=== PATIENT | female | born 1980 ===

== ENCOUNTER 2016-11-03 10:33 | Emergency (ER) | payer MEDICAID, OTHER ==
--- NOTE | 2016-11-03 11:49 | C.PDOC ---
History Of Present Illness 36 yr old female presents to the ER stating yesterday while walking she twisted her right foot. Patient states she was able to walk on it but the pain and swelling has progressively worsened. Patient denies leg pain, back pain, fall, weakness or numbness. Time Seen by Provider: 11/03/16 11:14 Chief Complaint (Nursing): Lower Extremity Problem/Injury History Per: Patient History/Exam Limitations: no limitations Onset/Duration Of Symptoms: Days (1) Current Symptoms Are (Timing): Still Present Pain Scale Rating Of: 4 Recent travel outside of the [place]: No - Knee Description Of Injury: Twisted Alleviating Factor(s): Elevation Past Medical History Reviewed: Historical Data, Nursing Documentation, Vital Signs Vital Signs: Last Vital Signs Temp 97.8 F 11/03/16 10:41 Pulse 76 11/03/16 10:41 Resp 16 11/03/16 10:41 BP 125/83 11/03/16 10:41 Pulse Ox 100 11/03/16 11:58 Surgical History: Cholecystectomy Family History: States: No Known Family Hx - Social History Hx Alcohol Use: No Hx Substance Use: No - Immunization History Hx Influenza Vaccination: No Review Of Systems Except As Marked, All Systems Reviewed And Found Negative. Musculoskeletal: Positive for: Foot Pain (Right foot). Negative for: Back Pain , Leg Pain Neurological: Negative for: Weakness, Numbness Physical Exam - Physical Exam Appears: Non-toxic, No Acute Distress Skin: Warm, Dry, No Rash Head: Atraumatic, Normacephalic Eye(s): bilateral: Normal Inspection Oral Mucosa: Moist Chest: Symmetrical Extremity: Tenderness (Right Foot - Lateral right foot ), No Calf Tenderness, Capillary Refill (< 2 sec), No Deformity, Swelling (Right Foot - Lateral right foot ), Other (Full ROM of toe. Full ROM of right knee. ) Extremity: Bilateral: Normal Color And Temperature Pulses: Left Dorsalis Pedis: Normal, Right Dorsalis Pedis: Normal Neurological/Psych: Oriented x3, Normal Speech, Normal Motor, Normal Sensation Gait: Steady ED Course And Treatment O2 Sat by Pulse Oximetry: 100 (on RA) Pulse Ox Interpretation: Normal - Other Rad X-Ray - Right Foot X-Ray: Interpreted by Me, Viewed By Me Interpretation: (+) comminuted fracture to the distal 5th metatarsal X-Ray - Right Knee X-Ray: Interpreted by Me, Viewed By Me Interpretation: Negative. Orthopedic Time Performed: 12:00 Time Out: Side verified, Site verified Procedure: Splint Type: Short, Posterior Consent obtained: Verbal Performed by: Mid-level Provider (Diana Carranza) Diagnosis: Fracture Type: Closed, Comminuted Location: Right Bone: Metatarsal Capillary refill: Normal Distal Sensation: Normal Distal Motor Function: Normal Compartment: Normal Distal Sensation: Normal Distal Motor Function: Normal Patient tolerated procedure: Well Medical Decision Making Medical Decision Making: PLAN: * X-Ray - Right Foot, Right Ankle * Tylenol PO Patient was instructed in crutch walking. Disposition - Disposition Referrals: Anya Quintero MD [Staff Provider] - [facility] [Outside] Disposition: HOME/ ROUTINE Disposition Time: 12:12 Condition: GOOD Additional Instructions: Follow up with the Orthopedist or Brake Rider within 1 week. 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 - Scribe Statement The provider has reviewed the documentation as recorded by the Scribe Bre Capone All medical record entries made by the Scribe were at my direction and personally dictated by me. I have reviewed the chart and agree that the record accurately reflects my personal performance of the history, physical exam, medical decision making, and the department course for this patient. I have also personally directed, reviewed, and agree with the discharge instructions and disposition.
[2016-11-03 12:30] VITALS: BP 110/77; PULSE 73; RESP 18; TEMP 97.9; O2SAT 98
--- NOTE | 2016-11-03 13:51 | RAD ---
PROCEDURE: Right Ankle Radiographs. HISTORY: Posttraumatic pain and swelling. COMPARISON: November 03, 2016. Right foot reported separately. FINDINGS: BONES: Incompletely visualized 5th metatarsal fracture. JOINTS: Normal. No osteoarthritis. Ankle mortise maintained. Talar dome intact SOFT TISSUES: Normal. OTHER FINDINGS: None. IMPRESSION: Unremarkable distal tibia, fibula and associated osseous structures comprising the right ankle. Incomplete visualization 5th metatarsal fracture.
--- NOTE | 2016-11-03 13:52 | RAD ---
PROCEDURE: Right Foot Radiographs. HISTORY: foot injury, pain and swelling COMPARISON: November 03, 2016. Right ankle reported separately FINDINGS: BONES: Obliques fracture midshaft right 5th metatarsal. Anatomic alignment of fracture fragments noted. No articular component. JOINTS: Normal. SOFT TISSUES: Normal. OTHER FINDINGS: None. IMPRESSION: Obliques 5th metatarsal fracture, acute. Concordant results with the preliminary interpretation rendered by the emergency department physician procedure.
== END 2016-11-03 12:35 | disposition home or self-care (01) ==
LOC: C.ER 10:33
DX: S92.351A Displaced fracture of fifth metatarsal bone, right foot, initial encounter for closed fracture (principal); X50.1XXA Overexertion from prolonged static or awkward postures, initial encounter; Y93.01 Activity, walking, marching and hiking; Y92.9 Unspecified place or not applicable
CPT/HCPCS: 29515; 73610; 73630; 97116; 97161; 99284; G8978; G8979; G8980

== ENCOUNTER 2017-08-23 08:47 | Emergency (ER) | payer MEDICAID ==
[2017-08-23] MEDS ORDERED: EPINEPHrine 1 mg/ml (1:1000) Inj SC STA (08:50)
[2017-08-23 08:53] VITALS: BMI 23.8
[2017-08-23] MEDS: Albuterol 0.083% Inhal Sol (2.5 mg/3 mL) UD INH SCH ×3 (09:00→09:30)
[2017-08-23] MEDS ORDERED: Sodium Chloride 0.9% 1,000 ML IV ONE (09:03)
--- NOTE | 2017-08-23 09:03 | C.PDOC ---
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 "SHE WAS DRINKING SOY MILK". SOB. UNABLE TO SPEAK ROS UTO EXAM MOD DIST HEENT +ANGIOEDEMA TONGUE MMM, NO DROOLING NECK NO STRIDOR, DIFFICULTY SPEAKING CHEST TACHYPNEA CTA B/L NO WHEEZE +RETRACTION CV RRR GOOD PERFUSION, WARM DRY NO EDEMA, HIVES REMAINDER NEG Time Seen by Provider: 08/23/17 08:48 Chief Complaint (Nursing): Shortness Of Breath History Per: Family History/Exam Limitations: clinical condition Onset/Duration Of Symptoms: Sudden Onset (BRAND MARKETING SPECIALIST) Context: Food (Soy milk) Past Medical History Reviewed: Historical Data, Nursing Documentation, Vital Signs Vital Signs: Last Vital Signs Temp 98.4 F 08/23/17 08:50 Pulse 95 H 08/23/17 08:50 Resp 24 08/23/17 08:50 BP 134/86 08/23/17 08:50 Pulse Ox 93 L 08/23/17 08:50 Surgical History: Cholecystectomy Family History: States: No Known Family Hx - Social History Hx Alcohol Use: No Hx Substance Use: No - Immunization History Hx Influenza Vaccination: No Review Of Systems Review Of Systems: ROS cannot be obtained secondary to pt's inabilty to answer questions. Physical Exam - Physical Exam Appears: Non-toxic, In Acute Distress (moderate) Skin: Warm, Dry, No Rash, Other (No edema. No hives. Good perfusion.) Head: Atraumatic, Normacephalic Eye(s): bilateral: Normal Inspection, PERRL, EOMI Oral Mucosa: Moist, No Drooling Tongue: Swelling (Angioedema tongue), No Bleeding Throat: Other ((+) difficulty speaking) Neck: Normal, Normal ROM, Supple Chest: Symmetrical, Other ((+) tachypnea) Cardiovascular: Rhythm Regular, No Murmur Respiratory: No Rales, No Wheezing, Other ((+) Retraction) Extremity: Normal ROM, No Swelling Neurological/Psych: Oriented x3, Normal Speech, Normal Motor ED Course And Treatment - Laboratory Results Result Diagrams: 08/23/17 09:17 08/23/17 09:17 - Radiology CXR: Interpreted by Me, Viewed By Me CXR Interpretation: Yes: No Acute Disease Progress - Re-Evaluation Re-evaluation Note: 08/23/17 08:59 SP EPI, ALBUTEROL: VSS MILD RESP DIST NEB IN PROGRESS. IMPROVED COMPARED TO INITIAL. REDUCED TONGUE SWELLING. MILD TACHYNPEA. GOOD PERFUSION. 08/23/17 09:16 NARD VSS IMPROVED FROM PRIOR. PS FEELS BETTER Medical Decision Making Medical Decision Making: PLAN: * CXR * EKG * CBC * BMP * Albuterol INH * Epinephrine SC * Benadryl IVP * Pepcid IVP * Solumedrol IVP * Sodium Chloride IV Disposition Counseled Patient/Family Regarding: Studies Performed, Diagnosis, Need For Followup, Rx Given - Disposition Referrals: YOUR,PMD [Other] Disposition: HOME/ ROUTINE Disposition Time: 11:03 Condition: IMPROVED Prescriptions: DiphenhydrAMINE [Benadryl] 50 mg PO TID PRN #30 cap PRN Reason: Itching / Pruritus Famotidine [Pepcid AC] 10 mg PO DAILY #4 tablet predniSONE [Prednisone] 60 mg PO DAILY #12 tab Instructions: Angioedema (ED) Forms: [employer] (Bengali) Print Language: MAURITANIAN - Clinical Impression Clinical Impression: Angioedema, Allergic reaction - Scribe Statement The provider has reviewed the documentation as recorded by the Franck Capone Provider Attestation: All medical record entries made by the Franck were at my direction and personally dictated by me. I have reviewed the chart and agree that the record accurately reflects my personal performance of the history, physical exam, medical decision making, and the department course for this patient. I have also personally directed, reviewed, and agree with the discharge instructions and disposition.
[2017-08-23] MEDS ORDERED: MethylPREDNISolone 40 mg Vial IVP STA (09:05)
[2017-08-23] MEDS ORDERED: DiphenhydrAMINE 50 mg/ml Inj IVP STA (09:05)
[2017-08-23] MEDS ORDERED: DiphenhydrAMINE 50 mg/ml Inj ONE (09:12)
[2017-08-23] MEDS ORDERED: MethylPREDNISolone 40 mg Vial ONE (09:13)
[2017-08-23] MEDS ORDERED: EPINEPHrine 1 mg/ml (1:1000) Inj ONE (09:13)
[2017-08-23] MEDS ORDERED: Albuterol 0.083% Inhal Sol (2.5 mg/3 mL) UD ONE (09:13)
[2017-08-23 09:20] LABS: BASO # 0.1 K/uL (0.0-0.2); BASO % 0.9 % (0.0-2.0); EOS # 0.2 K/uL (0.0-0.7); EOS % 2.5 % (0.0-4.0); HEMOGLOBIN 13.8 g/dL (11.0-16.0); LYMPH # 2.2 K/uL (1.0-4.3); LYMPH % 31.5 % (20.0-40.0); MEAN CELL VOLUME 91.9 fL (81.0-99.0); MEAN CORPUSCULAR HEMOGLOBIN 31.4 pg (27.0-31.0); MEAN CORPUSCULAR HGB CONC 34.2 g/dL (33.0-37.0); MEAN PLATELET VOLUME 9.5 fL (7.2-11.7); MONO # 0.5 K/uL (0.0-0.8); MONO % 6.8 % (0.0-10.0); NEUT # 4.1 K/uL (1.8-7.0); NEUT % 58.3 % (50.0-75.0); NRBC % 0.1 % (0.0-2.0); RBC 4.41 Mil/uL (3.80-5.20); RED CELL DISTRIBUTION WIDTH 13.4 % (11.5-14.5)
[2017-08-23 09:31] LABS: BLOOD UREA NITROGEN 13 mg/dL (7-17); CALCIUM 8.8 mg/dl (8.6-10.4); GFR AFRICAN-AMERICAN > 60; GFR NON-AFRICAN AMERICAN > 60
[2017-08-23] MEDS ORDERED: Albuterol-Ipratrop 3 mg / 0.5 (3 ml) UD ONE (09:38)
[2017-08-23] MEDS ORDERED: Sodium Chloride 0.9% 1,000 ML ONE (09:48)
[2017-08-23 11:17] VITALS: BP 106/65; PULSE 99; RESP 18; TEMP 98.3; O2SAT 100
--- NOTE | 2017-08-23 11:34 | RAD ---
PROCEDURE: CHEST RADIOGRAPH, 1 VIEW HISTORY: SOB COMPARISON: GoNone available. FINDINGS: LUNGS: Clear. PLEURA: No pneumothorax or pleural fluid seen. CARDIOVASCULAR: Normal. OSSEOUS STRUCTURES: No significant abnormalities. VISUALIZED UPPER ABDOMEN: Normal. OTHER FINDINGS: None. IMPRESSION: No active disease. Concordant results with the preliminary interpretation rendered by the emergency department physician procedure.
--- NOTE | 2017-08-24 21:58 | CARD ---
APPROVED REPORT EKG Measurement Heart [id number] CT [id number] <Conclusion> Normal sinus rhythm Poor R wave progression. Nonspecific ST/T abnormality. Abnormal ECG
== END 2017-08-23 11:38 | disposition home or self-care (01) ==
LOC: C.ER 08:47
DX: T78.3XXA Angioneurotic edema, initial encounter (principal)
CPT/HCPCS: 71045; 80048; 85025; 93005; 96361; 96372; 96374; 96375; 99285; J0171; J1200; J2920; J7040